=== PATIENT | male | born 1955 | race Hispanic/Latino ===

== ENCOUNTER 2018-06-07 17:05 | Emergency (ER) | payer BC, OTHER ==
[2018-06-07] MEDS ORDERED: DEXAMETHASONE SOD PHOSPHATE 10MG/ML 1ML VIAL ONE (17:14)
[2018-06-07] MEDS ORDERED: FAMOTIDINE/PF 20 MG/2 ML VIAL IV ONE (17:14)
[2018-06-07] MEDS ORDERED: DiphenhydrAMINE HCL 50 MG/ML VIAL ONE (17:14)
[2018-06-07 17:31] LABS: BASOPHILS % (AUTO) 0.6 % (0.0-5.0); EOSINOPHILS % (AUTO) 2.1 % (0.0-8.0); HEMATOCRIT 51.8 % (42-54); LYMPHOCYTES % (AUTO) 49.8 % (21.0-51.0); MEAN CORPUSCULAR HEMOGLOBIN 30.8 pg (27.0-33.0); MEAN CORPUSCULAR HGB CONC 34.7 g/dL (32.0-36.0); MEAN CORPUSCULAR VOLUME 88.8 fL (79-99); MONOCYTES % (AUTO) 5.5 % (3.0-13.0); NUCLEATED RED BLOOD CELLS 0.2 % (0.0-0.19); PLATELET COUNT (AUTO) 297 K/uL (130-400); RED BLOOD CELL COUNT(AUTO) 5.83 MIL/uL (4.50-6.20); WHITE BLOOD COUNT (AUTO) 6.7 K/uL (4.8-10.8)
== END 2018-06-07 20:05 | disposition home or self-care (01) ==
LOC: EDH 17:05
DX: T78.40XA Allergy, unspecified, initial encounter (principal); X58.XXXA Exposure to other specified factors, initial encounter
CPT/HCPCS: 36415; 80048; 82550; 85025; 93005; 96374; 96375; 99285; J1100; J1200; J3490

== ENCOUNTER 2020-07-24 16:02 | Emergency (ER) | payer BC, MEDICARE, OTHER ==
[2020-07-24] MEDS ORDERED: HYDROCODONE/ACETAMINOPHEN 10/325 MG TAB ONE (16:30)
[2020-07-24] MEDS ORDERED: LIDOCAINE HCL 2% 20ML ONE (17:23)
[2020-07-24] MEDS ORDERED: CEPHALEXIN 500 MG CAPSULE ONE (18:40)
== END 2020-07-24 19:00 | disposition home or self-care (01) ==
LOC: EDH 16:02
DX: S61.215A Laceration without foreign body of left ring finger without damage to nail, initial encounter (principal); W23.0XXA Caught, crushed, jammed, or pinched between moving objects, initial encounter; Y93.89 Activity, other specified; Y92.89 Other specified places as the place of occurrence of the external cause; Y99.8 Other external cause status
CPT/HCPCS: 12002; 73140; 99283; J3490

== ENCOUNTER 2020-07-26 08:51 | Emergency (ER) | payer MEDICARE ==
[2020-07-26] MEDS ORDERED: TETANUS/DIPHTHERIA TOXOID [ADULT] 0.5 ML VIAL IM ONE (09:50)
== END 2020-07-26 10:55 | disposition home or self-care (01) ==
LOC: EDH 08:51
DX: S61.215D Laceration without foreign body of left ring finger without damage to nail, subsequent encounter (principal); X58.XXXD Exposure to other specified factors, subsequent encounter
CPT/HCPCS: 90471; 90714

== ENCOUNTER 2020-11-19 18:06 | Emergency (ER) | payer MEDICARE ==
[~2020-11-19] VITALS: Ht 172.7 cm; Wt 74.8 kg
[2020-11-19 20:14] VITALS: BP 157/88
[2020-11-19 20:26] LABS: BASOPHILS % (AUTO) 0.6 % (0.0-5.0); EOSINOPHILS % (AUTO) 0.8 % (0.0-8.0); HEMATOCRIT 43.6 % (42-54); LYMPHOCYTES % (AUTO) 21.3 % (21.0-51.0); MEAN CORPUSCULAR HEMOGLOBIN 30.6 pg (27.0-33.0); MEAN CORPUSCULAR HGB CONC 34.2 g/dL (32.0-36.0); MEAN CORPUSCULAR VOLUME 89.5 fL (79-99); MONOCYTES % (AUTO) 6.6 % (3.0-13.0); NEUTROPHILS % (AUTO) 70.4 % (40.0-77.0); PLATELET COUNT (AUTO) 289 K/uL (130-400); RED BLOOD CELL COUNT(AUTO) 4.87 MIL/uL (4.50-6.20); RED CELL DISTRIBUTION WIDTH 12.6 % (11.0-15.5); WHITE BLOOD COUNT (AUTO) 8.6 K/uL (4.8-10.8)
[2020-11-19] MEDS ORDERED: 0.9%NACL 1000ML 1,000 ML IV SCH (20:30)
[2020-11-19 20:42] LABS: POTASSIUM 3.9 mmol/L (3.5-5.1)
[2020-11-19 20:47] LABS: ALBUMIN 3.9 g/dL (3.5-5.0); BILIRUBIN,TOTAL 0.9 mg/dL (0.2-1.0); TOTAL PROTEIN, SERUM 7.4 g/dL (6.0-8.3)
[2020-11-19] MEDS ORDERED: 0.9%NACL 1000ML 1,000 ML IV ONE (21:00)
[2020-11-19 21:24] VITALS: BP 149/83
[2020-11-19 22:24] VITALS: BP 140/75
[2020-11-19 22:55] LABS: APPEARANCE,URINE Clear (CLEAR); BILIRUBIN,URINE Negative (NEGATIVE); COLOR,URINE Yellow (YELLOW); GLUCOSE, URINE (UA) Negative (NEGATIVE); KETONES,URINE Negative (NEGATIVE); LEUKOCYTE ESTERASE ,URINE Negative (NEGATIVE); NITRATE,URINE Negative (NEGATIVE); OCCULT BLOOD,URINE Negative (NEGATIVE); PROTEIN,URINE Negative (NEGATIVE); UROBILINOGEN,URINE 0.2 mg/dL (0.2-1.0)
[2020-11-19 23:55] VITALS: BP 135/72
== END 2020-11-20 00:18 | disposition home or self-care (01) ==
LOC: EDH 18:06
DX: T67.5XXA Heat exhaustion, unspecified, initial encounter (principal); E86.0 Dehydration; F17.200 Nicotine dependence, unspecified, uncomplicated; X58.XXXA Exposure to other specified factors, initial encounter; Y93.89 Activity, other specified; Y92.89 Other specified places as the place of occurrence of the external cause; Y99.8 Other external cause status
CPT/HCPCS: 36415; 71045; 80053; 81003; 82550; 84484 ×2; 85025; 93005; 96360; 96361; 99285; J7030 ×2

== ENCOUNTER 2021-04-25 10:47 | Emergency (ER) | payer MEDICARE ==
[~2021-04-25] VITALS: Ht 172.7 cm; Wt 74.8 kg
[2021-04-25 11:19] LABS: BASOPHILS % (AUTO) 0.6 % (0.0-5.0); HEMATOCRIT 45.1 % (42-54); LYMPHOCYTES % (AUTO) 27.1 % (21.0-51.0); MEAN CORPUSCULAR HEMOGLOBIN 29.9 pg (27.0-33.0); MEAN CORPUSCULAR HGB CONC 33.9 g/dL (32.0-36.0); MEAN CORPUSCULAR VOLUME 88.3 fL (79-99); NEUTROPHILS % (AUTO) 65.9 % (40.0-77.0); PLATELET COUNT (AUTO) 281 K/uL (130-400); RED BLOOD CELL COUNT(AUTO) 5.11 MIL/uL (4.50-6.20); RED CELL DISTRIBUTION WIDTH 12.3 % (11.0-15.5); WHITE BLOOD COUNT (AUTO) 6.9 K/uL (4.8-10.8)
[2021-04-25] MEDS ORDERED: KETOROLAC 60 MG VIAL (30MG/ML) IM ONE (13:00)
[2021-04-25 13:09] LABS: POTASSIUM 4.5 mmol/L (3.5-5.1)
[2021-04-25 13:14] LABS: ALBUMIN 3.7 g/dL (3.5-5.0); BILIRUBIN,TOTAL 1.3 mg/dL (0.2-1.0); TOTAL PROTEIN, SERUM 7.2 g/dL (6.0-8.3)
[2021-04-25] MEDS ORDERED: ACET-3194 PO (13:27)
[2021-04-25] MEDS ORDERED: BISA-72 PO (13:27)
[2021-04-25 13:45] VITALS: BP 133/79
== END 2021-04-25 13:53 | disposition home or self-care (01) ==
LOC: EDH 10:47
DX: M79.645 Pain in left finger(s) (principal); K59.00 Constipation, unspecified; F17.200 Nicotine dependence, unspecified, uncomplicated; Z79.1 Long term (current) use of non-steroidal anti-inflammatories (NSAID)
CPT/HCPCS: 36415; 73130; 74018; 80053; 83690; 85025; 96372; 99284; J1885

== ENCOUNTER 2021-10-06 07:18 | Emergency (ER) | payer MEDICARE ==
[~2021-10-06] VITALS: Ht 172.7 cm; Wt 81.6 kg
[~2021-10-06 07:18] MED LIST: ACET-3194 PO; BISA-72 PO
[2021-10-06] MEDS ORDERED: 0.9%NACL 1000ML 1,000 ML IV ONE (08:00)
[2021-10-06 08:08] LABS: BASOPHILS % (AUTO) 0.7 % (0.0-5.0); HEMATOCRIT 46.3 % (42-54); LYMPHOCYTES % (AUTO) 23.8 % (21.0-51.0); MEAN CORPUSCULAR HEMOGLOBIN 30.1 pg (27.0-33.0); MEAN CORPUSCULAR HGB CONC 34.8 g/dL (32.0-36.0); MEAN CORPUSCULAR VOLUME 86.5 fL (79-99); MONOCYTES % (AUTO) 5.8 % (3.0-13.0); NEUTROPHILS % (AUTO) 67.4 % (40.0-77.0); PLATELET COUNT (AUTO) 246 K/uL (130-400); RED BLOOD CELL COUNT(AUTO) 5.35 MIL/uL (4.50-6.20); RED CELL DISTRIBUTION WIDTH 12.3 % (11.0-15.5); WHITE BLOOD COUNT (AUTO) 6.9 K/uL (4.8-10.8)
[2021-10-06 08:27] LABS: APPEARANCE,URINE Clear (CLEAR); BILIRUBIN,URINE Negative (NEGATIVE); COLOR,URINE Yellow (YELLOW); GLUCOSE, URINE (UA) Negative (NEGATIVE); KETONES,URINE Negative (NEGATIVE); LEUKOCYTE ESTERASE ,URINE Negative (NEGATIVE); NITRATE,URINE Negative (NEGATIVE); OCCULT BLOOD,URINE Negative (NEGATIVE); PH,URINE 6.5 (5.0-8.0); PROTEIN,URINE Negative (NEGATIVE); UROBILINOGEN,URINE 0.2 mg/dL (0.2-1.0)
[2021-10-06 08:52] VITALS: BP 129/86
[2021-10-06 09:09] LABS: ALBUMIN 3.4 g/dL (3.5-5.0); BILIRUBIN,TOTAL 0.7 mg/dL (0.2-1.0); TOTAL PROTEIN, SERUM 6.9 g/dL (6.0-8.3)
== END 2021-10-06 09:00 | disposition home or self-care (01) ==
LOC: EDH 07:18
DX: E86.0 Dehydration (principal); F17.200 Nicotine dependence, unspecified, uncomplicated
CPT/HCPCS: 36415; 80053; 81003; 85025; 96360; 99283; J7030

== ENCOUNTER 2022-07-26 13:31 | Emergency (ER) | payer MEDICARE, OTHER ==
[~2022-07-26] VITALS: Ht 172.7 cm; Wt 72.6 kg
[2022-07-26 13:32] VITALS: BP_DIAS 75
[2022-07-26] MEDS ORDERED: TRAM50TA4 PO (16:10)
[2022-07-26 16:22] VITALS: BP_SYST 134
== END 2022-07-26 16:30 | disposition home or self-care (01) ==
LOC: EDH 13:31
DX: K40.90 Unilateral inguinal hernia, without obstruction or gangrene, not specified as recurrent (principal); Z79.899 Other long term (current) drug therapy
CPT/HCPCS: 74176

== ENCOUNTER 2022-11-17 07:17 | Inpatient (IN) | payer OTHER ==
[~2022-11-17] VITALS: Ht 172.7 cm; Wt 85.2 kg
[2022-11-17] VITALS (7 sets, daily range): BP systolic 116–150; BP diastolic 70–86; PULSE 70–75; RESP 16–22; O2SAT 98–99
[~2022-11-17 07:17] MED LIST changes: +TRAM50TA4 PO
[2022-11-17 07:51] LABS: BASOPHILS % (AUTO) 0.4 % (0.0-5.0); EOSINOPHILS % (AUTO) 0.6 % (0.0-8.0); HEMATOCRIT 42.3 % (42-54); LYMPHOCYTES % (AUTO) 9.1 % (21.0-51.0); MEAN CORPUSCULAR HEMOGLOBIN 29.6 pg (27.0-33.0); MEAN CORPUSCULAR HGB CONC 33.8 g/dL (32.0-36.0); MEAN CORPUSCULAR VOLUME 87.6 fL (79-99); MONOCYTES % (AUTO) 5.9 % (3.0-13.0); NEUTROPHILS % (AUTO) 83.6 % (40.0-77.0); PLATELET COUNT (AUTO) 230 K/uL (130-400); RED BLOOD CELL COUNT(AUTO) 4.83 MIL/uL (4.50-6.20); WHITE BLOOD COUNT (AUTO) 9.8 K/uL (4.8-10.8)
[2022-11-17 07:56] LABS: CREATININE 0.9 mg/dL (0.5-1.5); POTASSIUM 3.7 mmol/L (3.5-5.1)
[2022-11-17] MEDS ORDERED: 0.9%NACL 1000ML 1,000 ML IV ONE (08:00)
[2022-11-17 08:05] LABS: ALBUMIN 3.2 g/dL (3.5-5.0); MAGNESIUM 1.9 mg/dL (1.80-2.40); TOTAL PROTEIN, SERUM 6.6 g/dL (6.0-8.3)
[2022-11-17 11:12] LABS: APPEARANCE,URINE CLEAR (CLEAR); BILIRUBIN,URINE NEGATIVE (NEGATIVE); GLUCOSE, URINE (UA) 30 mg/dL (NEGATIVE); KETONES,URINE NEGATIVE (NEGATIVE); LEUKOCYTE ESTERASE ,URINE NEGATIVE Leu/uL (NEGATIVE); NITRATE,URINE NEGATIVE (NEGATIVE); OCCULT BLOOD,URINE NEGATIVE (NEGATIVE); PH,URINE 5.5 (5.0-8.0); PROTEIN,URINE NEGATIVE (NEGATIVE); UROBILINOGEN,URINE 0.2 mg/dL (0.2-1.0)
[2022-11-17 11:13] LABS: COLOR,URINE LIGHT-YELLOW (YELLOW)
[2022-11-17 11:15] LABS: SQUAMOUS EPITHELIAL CELL,UR RARE /HPF (0-2); WBC,URINE 0-1 /HPF (0-1)
[2022-11-17] MEDS ORDERED: ACETAMINOPHEN 325 MG TAB PO PRN (12:00)
[2022-11-17] MEDS ORDERED: ONDANSETRON 4MG INJ IVP PRN (12:00)
[2022-11-17] MEDS: ENOXAPARIN SODIUM 30 MG/0.3 ML SQ SCH (13:14)
[2022-11-17] MEDS: BENZOCAINE/MENTH/CETYLPYRD CL 1 EACH LOZENGE MM PRN (13:15)
[2022-11-17] MEDS: INSULIN HUMULIN R 100 UNIT/ML 3ML SQ SCH ×2 (16:30→21:00)
[2022-11-18] VITALS (13 sets, daily range): BP systolic 120–155; BP diastolic 71–96; PULSE 63–85; RESP 16–20; O2SAT 99
[2022-11-18 05:23] LABS: HEMATOCRIT 40.4 % (42-54); MEAN CORPUSCULAR HEMOGLOBIN 30.4 pg (27.0-33.0); MEAN CORPUSCULAR HGB CONC 33.7 g/dL (32.0-36.0); MEAN CORPUSCULAR VOLUME 90.2 fL (79-99); RED BLOOD CELL COUNT(AUTO) 4.48 MIL/uL (4.50-6.20); RED CELL DISTRIBUTION WIDTH 12.9 % (11.0-15.5); WHITE BLOOD COUNT (AUTO) 6.8 K/uL (4.8-10.8)
[2022-11-18 05:27] LABS: CREATININE 0.9 mg/dL (0.5-1.5); POTASSIUM 3.7 mmol/L (3.5-5.1)
[2022-11-18 05:41] LABS: HEMOGLOBIN A1C 6.2 % (4.0-6.0)
[2022-11-18 05:48] LABS: ALBUMIN 2.7 g/dL (3.5-5.0); TOTAL PROTEIN, SERUM 5.9 g/dL (6.0-8.3)
[2022-11-18] MEDS: INSULIN HUMULIN R 100 UNIT/ML 3ML SQ SCH ×4 (06:31→20:47)
[2022-11-18] MEDS ORDERED: MECLIZINE HCL 25 MG TABLET PO PRN (07:00)
[2022-11-18] MEDS: ENOXAPARIN SODIUM 30 MG/0.3 ML SQ SCH (10:02)
[2022-11-18] MEDS: ASPIRIN 81 MG EC TAB PO SCH (10:02)
[2022-11-18] MEDS: BENZOCAINE/MENTH/CETYLPYRD CL 1 EACH LOZENGE MM PRN ×2 (16:25→21:03)
[2022-11-18] MEDS ORDERED: 0.9%NACL 50ML IV SCH (20:30)
[2022-11-18] MEDS: ZOSYN 3.375GM +NS 50ML IVPB SCH (21:03)
[2022-11-19] VITALS (10 sets, daily range): BP systolic 132–155; BP diastolic 72–88; PULSE 70–93; RESP 16–18; O2SAT 98–99
[2022-11-19] MEDS: ZOSYN 3.375GM +NS 50ML IVPB SCH ×3 (04:28→20:33)
[2022-11-19] MEDS: BENZOCAINE/MENTH/CETYLPYRD CL 1 EACH LOZENGE MM PRN ×2 (04:30→20:33)
[2022-11-19] MEDS: INSULIN HUMULIN R 100 UNIT/ML 3ML SQ SCH ×4 (06:06→20:40)
[2022-11-19] MEDS: ASPIRIN 81 MG EC TAB PO SCH (09:13)
[2022-11-19] MEDS: ENOXAPARIN SODIUM 30 MG/0.3 ML SQ SCH (09:14)
[2022-11-19] MEDS ORDERED: MECLIZINE HCL 12.5 MG TABLET PO PRN (15:30)
[2022-11-20] VITALS (10 sets, daily range): BP systolic 116–143; BP diastolic 67–82; PULSE 69–83; RESP 16–18; O2SAT 98
[2022-11-20] MEDS: ZOSYN 3.375GM +NS 50ML IVPB SCH ×3 (04:04→20:12)
[2022-11-20] MEDS: INSULIN HUMULIN R 100 UNIT/ML 3ML SQ SCH ×4 (05:45→20:17)
[2022-11-20] MEDS: ASPIRIN 81 MG EC TAB PO SCH (09:04)
[2022-11-20] MEDS: ENOXAPARIN SODIUM 30 MG/0.3 ML SQ SCH (09:05)
[2022-11-20] MEDS: BENZOCAINE/MENTH/CETYLPYRD CL 1 EACH LOZENGE MM PRN (09:12)
[2022-11-21] VITALS: BP 118/67; PULSE 68; RESP 16
[2022-11-21 04:00] VITALS: BP 119/72; PULSE 67; RESP 19
[2022-11-21] MEDS: ZOSYN 3.375GM +NS 50ML IVPB SCH (04:39)
[2022-11-21] MEDS: INSULIN HUMULIN R 100 UNIT/ML 3ML SQ SCH (05:59)
[2022-11-21] MEDS ORDERED: CEFD300C3 PO (06:16)
[2022-11-21 07:30] VITALS: O2SAT 98
[2022-11-21 07:58] VITALS: BP 127/73; PULSE 67; RESP 17
== END 2022-11-21 09:00 | disposition home or self-care (01) | DRG 153 ==
LOC: EDH 07:17 → EDHIP 11:48 → 4BH 16:51
PROVIDERS: ADMIT Internal Medicine; ATTEND Internal Medicine
DX: J02.9 Acute pharyngitis, unspecified (principal); K83.09 Other cholangitis; H81.399 Other peripheral vertigo, unspecified ear; E11.9 Type 2 diabetes mellitus without complications; E86.0 Dehydration
CPT/HCPCS: 36415; 70450; 70551; 71045; 80053; 81001; 82550; 82948; 83036; 83605; 83735; 83874; 84484; 85025; 85027; 87880; 93005; G0378; J1650; J1815; J2543; J7030

== ENCOUNTER 2023-08-07 23:27 | Emergency (ER) | payer OTHER ==
[~2023-08-07] VITALS: Ht 172.7 cm; Wt 74.8 kg
[2023-08-08 00:05] LABS: APPEARANCE,URINE CLEAR (CLEAR); BILIRUBIN,URINE NEGATIVE (NEGATIVE); COLOR,URINE YELLOW (YELLOW); GLUCOSE, URINE (UA) 30 mg/dL (NEGATIVE); KETONES,URINE 10 mg/dL (NEGATIVE); LEUKOCYTE ESTERASE ,URINE NEGATIVE Leu/uL (NEGATIVE); NITRATE,URINE NEGATIVE (NEGATIVE); OCCULT BLOOD,URINE NEGATIVE (NEGATIVE); PH,URINE 5.5 (5.0-8.0); PROTEIN,URINE 20 mg/dL (NEGATIVE); UROBILINOGEN,URINE 0.2 mg/dL (0.2-1.0)
[2023-08-08 00:09] LABS: ADD UA MICROSCOPIC YES
[2023-08-08 00:14] LABS: MUCUS,URINE RARE LPF (None Seen); RBC,URINE 0-1 /HPF (0-1); SQUAMOUS EPITHELIAL CELL,UR RARE /HPF (0-2); WBC,URINE 0-1 /HPF (0-1)
[2023-08-08 00:59] LABS: BASOPHILS # (AUTO) 0.06 K/uL (0.00-0.20); BASOPHILS % (AUTO) 0.5 % (0.0-5.0); EOSINOPHILS # (AUTO) 0.14 K/uL (0.00-0.70); EOSINOPHILS % (AUTO) 1.2 % (0.0-8.0); HEMATOCRIT 45.2 % (42-54); IMMATURE GRANULOCYTE ABSOLUTE 0.05 K/uL (0-1); LYMPHOCYTES % (AUTO) 17.8 % (21.0-51.0); MEAN CORPUSCULAR VOLUME 85.8 fL (79-99); MONOCYTES # (AUTO) 0.6 K/uL (0.1-1.0); MONOCYTES % (AUTO) 5.5 % (3.0-13.0); NEUTROPHILS # (AUTO) 8.5 K/uL (1.8-7.7); NEUTROPHILS % (AUTO) 74.6 % (40.0-77.0); PLATELET COUNT (AUTO) 262 K/uL (130-400); RED BLOOD CELL COUNT(AUTO) 5.27 MIL/uL (4.50-6.20); RED CELL DISTRIBUTION WIDTH 12.8 % (11.0-15.5); WHITE BLOOD COUNT (AUTO) 11.4 K/uL (4.8-10.8)
[2023-08-08 01:14] LABS: POTASSIUM 3.7 mmol/L (3.5-5.1)
[2023-08-08 01:18] LABS: ALBUMIN 3.7 g/dL (3.5-5.0); BILIRUBIN,TOTAL 0.8 mg/dL (0.2-1.0); TOTAL PROTEIN, SERUM 7.4 g/dL (6.0-8.3)
[2023-08-08] MEDS: ONDANSETRON 4MG INJ IVP ONE (02:08)
[2023-08-08] MEDS: MORPHINE 2 MG SYG IVP ONE (02:08)
[2023-08-08] MEDS: LACTATED RINGERS 1000ML 1,000 ML IV ONE (02:08)
[2023-08-08] MEDS ORDERED: IOHEXOL 350 MG/ML 100ML INFUS..BTL IV ONE (06:56)
[2023-08-08] MEDS ORDERED: LOPE2TAB26 PO (08:45)
[2023-08-08] MEDS ORDERED: CIPR750T17 PO (08:45)
[2023-08-08] MEDS ORDERED: ONDA4TAB10 PO (08:45)
[2023-08-08 10:10] VITALS: BP 121/71; PULSE 64; RESP 20; O2SAT 98
== END 2023-08-08 10:10 | disposition home or self-care (01) ==
LOC: EDH 23:27
DX: R10.9 Unspecified abdominal pain (principal); E11.9 Type 2 diabetes mellitus without complications; F17.200 Nicotine dependence, unspecified, uncomplicated; Z98.890 Other specified postprocedural states
CPT/HCPCS: 99285; 82150; 82550; 84484; 80053; 83690; 85025; 83605 ×2; 81001; 36415; 93005; 74178; 96374; 96375; 74018; J7120; J2270; J2405; Q9967